=== PATIENT | male | born 1940 | race Caucasian/White ===

== ENCOUNTER → 2016-11-04 | Outpatient (CLI) | payer MEDICARE, OTHER | LOC: LAB 21:08 | DX: H34.11 Central retinal artery occlusion, right eye (principal) | CPT/HCPCS: 36415; 86140 ==

== ENCOUNTER → 2016-11-05 | Outpatient (CLI) | payer MEDICARE, OTHER | LOC: US 11:30 | DX: H34.11 Central retinal artery occlusion, right eye (principal); I65.21 Occlusion and stenosis of right carotid artery; I65.22 Occlusion and stenosis of left carotid artery | CPT/HCPCS: 36415; 86140; 93880 ==